=== PATIENT | female | born 1970 | race Caucasian/White ===

== ENCOUNTER 2020-10-25 11:39 | Emergency (ER) | payer OTHER ==
[~2020-10-25] VITALS: Ht 165.1 cm; Wt 79.8 kg
[2020-10-25] MEDS ORDERED: SYNTHROID50 MCG (12:07)
== END 2020-10-25 17:01 | disposition home or self-care (01) ==
LOC: ER 11:39
DX: K59.09 Other constipation (principal); R10.84 Generalized abdominal pain; M54.5 Low back pain